=== PATIENT | female | born 1960 | race Caucasian/White ===

== ENCOUNTER 2021-07-25 08:16 | Observation (INO) | payer OTHER ==
[2021-07-25] MEDS ORDERED: SODIUM CHLORIDE 0.9% 1,000 ML IV STA ×2 (08:23)
--- NOTE | 2021-07-25 08:25 | ED ---
Dizziness HPI - General Stated Complaint: Hypertension Time Seen by Provider: 07/25/21 08:16 Source: patient, EMS, RN notes reviewed Mode of arrival: EMS Limitations: no limitations - History of Present Illness Initial Comments: 60-year-old female with a benign past medical history positive family history for CVA and hypertension who apparently had an episode yesterday where she was working on a computer the dizzy and felt like he was having difficulty with her vision where was closing up this morning she took her blood pressure was 190 systolic she will still feeling somewhat dizzy she called EMS was brought in for evaluation. He has a dizzy episode while in the EMS truck no chest pain shortness breath fevers chills nausea vomiting sweats no headache no palpitations no other complaints or symptoms reported. She does admit that she likely did not drink much fluid yesterday. She feels like she does have a dry mouth. MD Complaint: dizziness, other - Related Data Home Medications Medication Instructions Recorded Confirmed No Known Home Medications 07/25/21 07/25/21 Allergies Allergy/AdvReac Type Severity Reaction Status Date / Time No Known Allergies Allergy Verified 07/25/21 08:54 Review of Systems ROS Statement: Those systems with pertinent positive or pertinent negative responses have been documented in the HPI. ROS Other: All systems not noted in ROS Statement are negative. Past Medical History Past Medical History: No Reported History History of Any Multi-Drug Resistant Organisms: None Reported Past Surgical History: No Surgical Hx Reported Past Psychological History: No Psychological Hx Reported Smoking Status: Never smoker Past Alcohol Use History: Daily Past Drug Use History: None Reported General Exam - General Exam Comments Initial Comments: This is a well-developed well-nourished awake alert oriented 3 female Limitations: no limitations General appearance: alert, anxious Head exam: Present: atraumatic, normocephalic, normal inspection Eye exam: Present: normal appearance, PERRL, EOMI. Absent: scleral icterus, conjunctival injection, periorbital swelling ENT exam: Present: normal exam, mucous membranes moist Neck exam: Present: normal inspection, full ROM, other (No stridor or bruits). Absent: tenderness, meningismus, lymphadenopathy Respiratory exam: Present: normal lung sounds bilaterally. Absent: respiratory distress, wheezes, rales, rhonchi, stridor Cardiovascular Exam: Present: regular rate, normal rhythm, normal heart sounds. Absent: systolic murmur, diastolic murmur, rubs, gallop, clicks GI/Abdominal exam: Present: soft, normal bowel sounds. Absent: distended, tenderness, guarding, rebound, rigid, bruit, pulsatile mass Extremities exam: Present: normal inspection, full ROM, normal capillary refill. Absent: tenderness, pedal edema, joint swelling, calf tenderness Back exam: Present: normal inspection Neurological exam: Present: alert, oriented X3, CN II-XII intact Psychiatric exam: Present: normal affect, normal mood Skin exam: Present: warm, dry, intact, normal color. Absent: rash Course Vital Signs 07/25/21 07/25/21 07/25/21 08:18 09:07 10:45 Pulse Rate 82 78 Respiratory 18 18 Rate Blood Pressure 171/77 147/88 148/78 O2 Sat by Pulse 100 100 Oximetry EKG Findings - EKG Results: EKG: interpreted by NIKI ROSSL, sinus rhythm, normal axis, normal QRS, normal ST/T, no acute changes (Normal sinus rhythm a 71. Interval 164 QRS 84 QT since QTC 374/[address]-T wave changes) Medical Decision Making - Medical Decision Making I did reevaluate patient multiple occasions we did discuss the findings patient still has intermittent episodes of dizziness without provocation no change with position head turning eye movement exam of the ear canals reveals cerumen no definite acute pathology. She did have a recent plugged left ear she states but that's since resolved patient will be admitted for evaluation by neurology I did discuss the case with Dr. Adorno - Lab Data Result diagrams: 07/25/21 08:30 07/25/21 08:30 Lab Results 07/25/21 07/25/21 07/25/21 Range/Units 08:30 08:30 08:30 WBC 5.4 (3.8-10.6) k/uL RBC 4.57 (3.80-5.40) m/uL Hgb 14.2 (11.4-16.0) gm/dL Hct 43.0 (34.0-46.0) % MCV 93.9 (80.0-100.0) fL MCH 31.1 (25.0-35.0) pg MCHC 33.1 (31.0-37.0) g/dL RDW 12.7 (11.5-15.5) % Plt Count 271 (150-450) k/uL MPV 7.5 Neutrophils % 59 % Lymphocytes % 30 % Monocytes % 4 % Eosinophils % 3 % Basophils % 1 % Neutrophils # 3.2 (1.3-7.7) k/uL Lymphocytes # 1.6 (1.0-4.8) k/uL Monocytes # 0.2 (0-1.0) k/uL Eosinophils # 0.2 (0-0.7) k/uL Basophils # 0.0 (0-0.2) k/uL Sodium 144 (137-145) mmol/L Potassium 3.6 (3.5-5.1) mmol/L Chloride 107 (98-107) mmol/L Carbon Dioxide 26 (22-30) mmol/L Anion Gap 11 mmol/L BUN 19 H (7-17) mg/dL Creatinine 0.79 (0.52-1.04) mg/dL Est GFR (CKD-EPI)AfAm >90 (>60 ml/min/1.73 sqM) Est GFR (CKD-EPI)NonAf 81 (>60 ml/min/1.73 sqM) Glucose 119 H (74-99) mg/dL Calcium 9.6 (8.4-10.2) mg/dL Magnesium 2.0 (1.6-2.3) mg/dL Total Bilirubin 0.8 (0.2-1.3) mg/dL AST 19 (14-36) U/L ALT 17 (4-34) U/L Alkaline Phosphatase 74 (38-126) U/L Creatine Kinase 68 (30-135) U/L Troponin I <0.012 (0.000-0.034) ng/mL Total Protein 7.2 (6.3-8.2) g/dL Albumin 4.6 (3.5-5.0) g/dL TSH 5.430 H (0.465-4.680) mIU/L Free T4 1.02 (0.78-2.19) ng/dL Urine Color Urine Appearance (Clear) Urine pH (5.0-8.0) Ur Specific Sargent (1.001-1.035) Urine Protein (Negative) Urine Glucose (UA) (Negative) Urine Ketones (Negative) Urine Blood (Negative) Urine Nitrite (Negative) Urine Bilirubin (Negative) Urine Urobilinogen (<2.0) mg/dL Ur Leukocyte Esterase (Negative) Urine RBC (0-5) /hpf Urine WBC (0-5) /hpf Ur Squamous Epith Cells (0-4) /hpf Coronavirus (PCR) (Not Detectd) 07/25/21 07/25/21 Range/Units 09:17 09:42 WBC (3.8-10.6) k/uL RBC (3.80-5.40) m/uL Hgb (11.4-16.0) gm/dL Hct (34.0-46.0) % MCV (80.0-100.0) fL MCH (25.0-35.0) pg MCHC (31.0-37.0) g/dL RDW (11.5-15.5) % Plt Count (150-450) k/uL MPV Neutrophils % % Lymphocytes % % Monocytes % % Eosinophils % % Basophils % % Neutrophils # (1.3-7.7) k/uL Lymphocytes # (1.0-4.8) k/uL Monocytes # (0-1.0) k/uL Eosinophils # (0-0.7) k/uL Basophils # (0-0.2) k/uL Sodium (137-145) mmol/L Potassium (3.5-5.1) mmol/L Chloride (98-107) mmol/L Carbon Dioxide (22-30) mmol/L Anion Gap mmol/L BUN (7-17) mg/dL Creatinine (0.52-1.04) mg/dL Est GFR (CKD-EPI)AfAm (>60 ml/min/1.73 sqM) Est GFR (CKD-EPI)NonAf (>60 ml/min/1.73 sqM) Glucose (74-99) mg/dL Calcium (8.4-10.2) mg/dL Magnesium (1.6-2.3) mg/dL Total Bilirubin (0.2-1.3) mg/dL AST (14-36) U/L ALT (4-34) U/L Alkaline Phosphatase (38-126) U/L Creatine Kinase (30-135) U/L Troponin I (0.000-0.034) ng/mL Total Protein (6.3-8.2) g/dL Albumin (3.5-5.0) g/dL TSH (0.465-4.680) mIU/L Free T4 (0.78-2.19) ng/dL Urine Color Light Yellow Urine Appearance Clear (Clear) Urine pH 6.0 (5.0-8.0) Ur Specific Sargent 1.007 (1.001-1.035) Urine Protein Negative (Negative) Urine Glucose (UA) Negative (Negative) Urine Ketones Negative (Negative) Urine Blood Negative (Negative) Urine Nitrite Negative (Negative) Urine Bilirubin Negative (Negative) Urine Urobilinogen <2.0 (<2.0) mg/dL Ur Leukocyte Esterase Moderate H (Negative) Urine RBC <1 (0-5) /hpf Urine WBC 4 (0-5) /hpf Ur Squamous Epith Cells <1 (0-4) /hpf Coronavirus (PCR) Not Detected (Not Detectd) - Radiology Data Radiology results: report reviewed (Imaging showed no acute findings incidental findings of prominent tonsils please see the complete report), image reviewed Disposition Clinical Impression: Dizziness, nonspecific Disposition: ADMITTED IP TO THIS [facility] Condition: Stable Referrals: Nonstaff,Physician [Primary Care Provider] - 1-2 days
[2021-07-25 08:37] LABS: Basophils % (A) 1 %; Eosinophils # (A) 0.2 k/uL (0-0.7); Eosinophils % (A) 3 %; HGB 14.2 gm/dL (11.4-16.0); Lymphocytes # (A) 1.6 k/uL (1.0-4.8); Lymphocytes % (A) 30 %; MCH 31.1 pg (25.0-35.0); MCHC 33.1 g/dL (31.0-37.0); MCV 93.9 fL (80.0-100.0); Mean Platelet Volume 7.5; Monocytes # (A) 0.2 k/uL (0-1.0); Monocytes % (A) 4 %; Neutrophils # (A) 3.2 k/uL (1.3-7.7); Neutrophils % (A) 59 %; Platelet Count 271 k/uL (150-450); RBC 4.57 m/uL (3.80-5.40); RDW 12.7 % (11.5-15.5); WBC 5.4 k/uL (3.8-10.6)
[2021-07-25 08:58] LABS: ALT 17 U/L (4-34); AST 19 U/L (14-36); African American GFR (CKD) >90 (>60 ml/min/1.73 sqM); Albumin 4.6 g/dL (3.5-5.0); Alkaline Phosphatase 74 U/L (38-126); Anion Gap 11 mmol/L; Blood Urea Nitrogen 19 mg/dL (7-17); Calcium 9.6 mg/dL (8.4-10.2); Carbon Dioxide 26 mmol/L (22-30); Chloride 107 mmol/L (98-107); Creatine Kinase 68 U/L (30-135); Glucose 119 mg/dL (74-99); Non-African American GFR(CKD) 81 (>60 ml/min/1.73 sqM); Potassium 3.6 mmol/L (3.5-5.1); Sodium 144 mmol/L (137-145); Total Bilirubin 0.8 mg/dL (0.2-1.3); Total Protein 7.2 g/dL (6.3-8.2)
--- NOTE | 2021-07-25 09:15 | XR ---
EXAMINATION TYPE: XR chest 2V DATE OF EXAM: 07/25/2021 COMPARISON: NONE HISTORY: Hypertension TECHNIQUE: Frontal and lateral views of the chest are obtained. FINDINGS: There is no focal air space opacity, pleural effusion, or pneumothorax seen. The cardiac silhouette size is within normal limits. The osseous structures are remarkable for mild superior an terior wedge deformity the upper lumbar spine, associated degenerative disc changes. Right hemidiaphr agm is mildly elevated. There are overlying leads. IMPRESSION: No acute cardiopulmonary process. Additional findings above.
[2021-07-25] MEDS ORDERED: ONDANSETRON 4 MG/2 ML VIAL IVP STA (09:29)
[2021-07-25] MEDS ORDERED: MECLIZINE 12.5 MG TAB PO STA (09:38)
[2021-07-25 09:40] LABS: Appearance,Urine Clear (Clear); Bilirubin,Urine Negative (Negative); Blood,Urine Negative (Negative); Color,Urine Light Yellow; Glucose,Urine (UA) Negative (Negative); Ketones,Urine Negative (Negative); Leukocyte Esterase,Urine Moderate (Negative); Nitrite,Urine Negative (Negative); Protein,Urine Negative (Negative); RBC,Urine <1 /hpf (0-5); Specific Gravity,Urine 1.007 (1.001-1.035); Squamous Epithelial Cell,Urine <1 /hpf (0-4); Urobilinogen,Urine <2.0 mg/dL (<2.0); WBC,Urine 4 /hpf (0-5)
[2021-07-25 09:56] LABS: T4, Free (Free Thyroxine) 1.02 ng/dL (0.78-2.19)
--- NOTE | 2021-07-25 10:24 | CT ---
EXAMINATION TYPE: CT brain wo con DATE OF EXAM: 07/25/2021 COMPARISON: None HISTORY: 60-year-old female Headache, Hypertension 1098.4, infection suspected. TECHNIQUE: Examination was done in axial plane without intravenous contrast. Coronal and sagittal r econstructions performed. CT DLP: 1098.7 mGycm Automated exposure control for dose reduction was used. FINDINGS: There is no evidence of acute intracranial hemorrhage, acute ischemic changes, mass, mass-effect, or extra-axial fluid collection. There is no effacement of cerebral sulci or basal subarachnoid cister ns. There is no hydrocephalus. There is no midline shift. Velasco-white matter distinction is preserv ed. Incidental cerebellar tonsillar ectopia measuring up to 5 mm on the right and 3 mm on the left. Some elongated appearance to the tonsils on the right. However, there is no significant crowding at the fo ramen magnum. Paranasal sinuses are clear. Mastoid air cells well pneumatized. Orbits and globes are intact. IMPRESSION: 1. No acute intracranial abnormality seen. 2. Indeterminate between benign cerebellar tonsillar ectopia and Chiari I malformation. Further clini tamika correlation recommended.
[2021-07-25] MEDS ORDERED: NALOXONE 0.4 MG/ML 1 ML VIAL IV PRN (13:03)
[2021-07-25] MEDS ORDERED: ACETAMINOPHEN TAB 325 MG TAB PO PRN (13:03)
--- NOTE | 2021-07-25 14:45 | P.CNNES ---
History of Present Illness Consult date: 07/25/21 Requesting physician: Ernie Francis Reason for Consult: intractable diziness History of Present Illness: This is a 60-year-old right-handed woman with no past medical history that presented emergency department via EMS on 07/25/2021 for dizziness. She stated that on 07/24/2021 around 7 PM she had a 15 minute episode of the visual disturbance in which she describes that she was seeing spots on both eyes and there is no color to the spots and there is no pattern to them but a just seemed "goofy" on both of her eyes then resolved. Then today when she woke up around 7 AM she had an episode where she was feeling dizzy and her vision was tunneled. She could not describe the dizziness but she denied any spinning sensation, nausea, vomiting, ringing in the ears or hearing loss. She denies any associated focal weakness, numbness, difficulty swallowing, difficulty getting her words out or having headaches. She said that she checked her blood pressure today and it was 208/94. Currently she said feeling back to baseline. She stated that this past Thursday she felt her left ear was off but she denies any drainage and erythema and she said that resolved within a day. He denies any head trauma, any fever recently, as stated earlier any ringing in the ears. She denies any tobacco use or illicit drug use. She socially drinks alcohol. She denies any history of stroke, TIA or any other medical issues. She denies any history of hypertension. She denies being on any medications at home. Per father had history of stroke in his 40s and she said that her brother had a history of brain bleed in the pituitary. Some of the workup in the hospital consisted of: Initial vital signs his blood pressure of 171/77, heart rate of 82, respiratory of 18, pulse ox 100% room air. CBC with differential is unremarkable Chemistry panel is unremarkable Calcium is 9.6, magnesium 2.0, AST of 19, ALT of 70 TSH is 5.430 which is a slightly high but the free T4 was 1.02 which is normal. Urinalysis is clear, nitrates negative, leukocyte Estrace moderate, urine white blood cell is 4. Freire virus PCR was not detected that. CT of the head is reported as no acute intracranial abnormality seen. In determining between benign cerebellar tonsilar ectopia and chiari malformation. I personally reviewed the CT of the head there is no acute or subacute ischemia there is no intraparenchymal hemorrhage. Regarding the chiari malformation vs ectopia it is hard to assess. Review of Systems Review of system: The 12 point system was reviewed and apparent positive and negative per HPI. Past Medical History Past Medical History: No Reported History History of Any Multi-Drug Resistant Organisms: None Reported Past Surgical History: No Surgical Hx Reported Past Psychological History: No Psychological Hx Reported Smoking Status: Never smoker Past Alcohol Use History: Daily Past Drug Use History: None Reported - Past Family History Mother Family Medical History: COPD, Diabetes Mellitus, Hypertension Father Family Medical History: CVA/TIA, Dementia Brother(s) Additional Family Medical History / Comment(s): brain bleed. Medications and Allergies Home Medications Medication Instructions Recorded Confirmed Type No Known Home Medications 07/25/21 07/25/21 History Allergies Allergy/AdvReac Type Severity Reaction Status Date / Time No Known Allergies Allergy Verified 07/25/21 08:54 Physical Examination - Vital Signs Vital Signs: Vital Signs Pulse Resp BP Pulse Ox 07/25/21 10:45 78 18 148/78 100 07/25/21 09:07 147/88 07/25/21 08:18 82 18 171/77 100 Intake and Output 07/24/21 07/25/21 07/25/21 22:59 06:59 14:59 Other: Weight 70.307 kg GENERAL: The patient is lying in bed and is not in acute distress. CHEST: The heart rate is regular rate rhythm. No murmurs to auscultation. LUNG: Clear to auscultation bilaterally no wheezing noted throughout. Not labored breathing. ABDOMEN/GI: Bowel sounds present in all 4 quadrants. No tenderness to palpation throughout. NEUROLOGICAL: Higher mental function: The patient is awake, alert, oriented to self, place and time. Patient is following commands. No aphasia and no neglect. Cranial nerves: The pupils are round, equal and reactive to light and accommodation. Visual r[place] are full to confrontation throughout. Extraocular movement is intact no nystagmus is noted. Facial sensation is normal to touch throughout. The facial strength is normal throughout. Hearing is normal bilaterally to hand rub. Tongue is midline and moved [id number] without any difficulty. No dysarthria is noted. Shoulder shrug is normal bilaterally. Motor: Gait is normal with normal arm swings. The strength is 5 over 5 throughout. Normal tone and bulk. Cerebellum: Normal finger to nose heel to teixeira bilaterally. Sensation: Sensation is normal to touch throughout. Reflexes (right/left): 2+ throughout. Plantars are downgoing bilaterally. Results - Laboratory Findings CBC and BMP: 07/25/21 08:30 07/25/21 08:30 Abnormal Lab Findings: Abnormal Labs 07/25/21 07/25/21 08:30 09:17 BUN 19 H Glucose 119 H TSH 5.430 H Ur Leukocyte Esterase Moderate H Assessment and Plan Assessment: Transient episode of acute Dizziness, visual disturbance: Unknown exact etiology. Unsure if only related to uncontrolled new onset hypertension. Rule out stroke or intracranial lesion. New onset uncontrolled hypertension Family history of stroke (father in his 40's) Plan: I ordered MRI of the brain to rule out stroke vs other intracranial lesion. I also ordered the MRI to help determine whether the patient does have any chiari malformation vs cerebellar ectopia. In the ED the patient was given meclizine 25 mg once. Every 4 hours neuro checks We'll defer the rest of the medical management to primary team. The plan is discussed with the patient. Thank you for the consultation. Enrrique Mortensen M.D. Neuro-Hospitalist Time with Patient: Greater than 30
--- NOTE | 2021-07-25 14:59 | P.HPIM ---
History of Present Illness H&P Date: 07/25/21 Chief Complaint: dizziness 60-year-old female with no significant past medical history but has positive family history for CVA in her father in his 40s who presented with dizziness, described as lightheadedness, ''tunnel vision'', seeing ''spots'' as well as difficulty with her memory earlier today. Last night she took her blood pressure and it was 190 systolic. No focal weakness or numbness, no slurred speech, no chest pain shortness breath fevers chills nausea vomiting sweats no headache no palpitations no other complaints or symptoms reported. She does admit that she likely did not drink much fluid yesterday and she feels that her mouth is dry.. She takes 2 alcohol drinks 4 times a week. Her blood pressure in the emergency department was 170/70. Laboratory evaluation was negative. Patient had computed tomography scan which was unremarkable. She was admitted for further evaluation by neurology. Review of Systems Complete review of system performed, pertinent positives per HPI, otherwise negative Past Medical History Past Medical History: No Reported History History of Any Multi-Drug Resistant Organisms: None Reported Past Surgical History: No Surgical Hx Reported Past Psychological History: No Psychological Hx Reported Smoking Status: Never smoker Past Alcohol Use History: Daily Past Drug Use History: None Reported - Past Family History Mother Family Medical History: COPD, Diabetes Mellitus, Hypertension Father Family Medical History: CVA/TIA, Dementia Brother(s) Additional Family Medical History / Comment(s): brain bleed. Medications and Allergies Home Medications Medication Instructions Recorded Confirmed Type No Known Home Medications 07/25/21 07/25/21 History Allergies Allergy/AdvReac Type Severity Reaction Status Date / Time No Known Allergies Allergy Verified 07/25/21 08:54 Physical Exam Vitals: Vital Signs Pulse Resp BP Pulse Ox 07/25/21 10:45 78 18 148/78 100 07/25/21 09:07 147/88 07/25/21 08:18 82 18 171/77 100 Intake and Output 07/24/21 07/25/21 07/25/21 22:59 06:59 14:59 Other: Weight 70.307 kg Constitutional: No acute distress, conversant, pleasant Eyes:Anicteric sclerae, moist conjunctiva, no lid-lag, PERRLA, ENMT: Oropharynx clear, no erythema, exudates Neck: Supple, FROM, no masses, or JVD, No carotid bruits, No thyromegaly Lungs: Clear to auscultation, Clear to percussion, Normal respiratory effort, no accessory muscle use Cardiovascular: Heart regular in rate and rhythm, No murmurs, gallops, or rubs, No peripheral edema Abdominal: Soft, Nontender, no guarding, rebound or rigidity, Normoactive bowel sounds, No hepatomegaly, No splenomegaly, No palpable mass Skin: Normal temperature, tone, texture, turgor, no induration, No subcutaneous nodules, No rash, lesions, No ulcers Extremities: No digital cyanosis, No clubbing, Pedal pulses intact and symmetrical, Radial pulses intact and symmetrical, No calf tenderness Psychiatric: Alert and oriented to person, place and time, appropriate affect, intact judgement Neuro: Muscles Strength 5/5 in all 4 extremities, Sensation to light touch grossly present throughout, Cranial nerves II-XII grossly intact, no focal sensory deficits Results CBC & Chem 7: 07/25/21 08:30 07/25/21 08:30 Labs: Abnormal Lab Results - Last 24 Hours (Table) 07/25/21 07/25/21 Range/Units 08:30 09:17 BUN 19 H (7-17) mg/dL Glucose 119 H (74-99) mg/dL TSH 5.430 H (0.465-4.680) mIU/L Ur Leukocyte Esterase Moderate H (Negative) Assessment and Plan Plan: Dizziness/visual disturbance Admit for neuro checks and neurology evaluation Neurochecks q 4hrs Brain MRI to rule out CVA, could be secondary to dehydration versus new-onset hypertension New-onset hypertension We'll start BP meds in a.m. EtOH abuse Counseled to quit Monitor for withdrawal Admit to observation
[2021-07-25 21:32] VITALS: TEMP 98.1
[2021-07-25] MEDS: SODIUM CHLORIDE 0.9% 1,000 ML IV SCH (21:33)
[2021-07-26 03:03] VITALS: RESP 18
[2021-07-26] MEDS: SODIUM CHLORIDE 0.9% 1,000 ML IV SCH (03:49)
[2021-07-26 08:06] VITALS: BP 150/69; PULSE 71
--- NOTE | 2021-07-26 10:52 | MR ---
EXAMINATION TYPE: MR brain wo/w con DATE OF EXAM: 07/26/2021 COMPARISON: CT 07/25/2021 HISTORY: Dizziness, R/O chiari malformation vs ectopia TECHNIQUE: Multiplanar, multisequence images of the brain and brainstem is performed without and with IV contras t, utilizing 7 mL intravenous Gadavist . FINDINGS: Diffusion weighted images demonstrate no evidence of a recent infarct or other diffusion ab normality. There is no extra-axial fluid collection. There are scattered periventricular, subcortic al hyperintensities on inversion recovery T2-weighted sequences, approximately 15-20 lesions are pres ent, largest in the right frontal lobe measures 7 mm, axial image 19 of series 501. The ventricular s ystem and cisternal spaces are normal in size and appearance. The brain volume is age appropriate. Midline structures demonstrate minimal inferior cerebellar tonsillar ectopia, sagittal image 16 serie s 201 shows close proximity of the inferior aspect of the cerebellar tonsil to the level of the latisha en magnum as does post contrast sagittal image 87 series 601.. The craniocervical junction appears w ithin normal limits. Post contrast images demonstrate no abnormal enhancement. The dural venous sinu ses appear patent. The visualized sinuses are clear and the globes are intact. IMPRESSION: Borderline inferior cerebellar tonsillar ectopia. Nonspecific white matter demyelination.
--- NOTE | 2021-07-26 11:22 | P.DS ---
Providers Date of admission: 07/25/21 13:06 Expected date of discharge: 07/26/21 Attending physician: Gay Adorno MD Consults: 07/25/21 13:05 Consult Physician Routine Consulting Provider: Enrrique Mortensen Consult Reason/Comments: Intractable dizziness Do you want consulting provider notified?: Yes Primary care physician: Physician Nonstaff Hospital Course: 60-year-old female with no significant past medical history but has positive family history for CVA in her father in his 40s who presented with dizziness, described as lightheadedness, ''tunnel vision'', seeing ''spots'' as well as difficulty with her memory earlier today. Last night she took her blood pressure and it was 190 systolic. No focal weakness or numbness, no slurred speech, no chest pain shortness breath fevers chills nausea vomiting sweats no headache no palpitations no other complaints or symptoms reported. She does admit that she likely did not drink much fluid yesterday and she feels that her mouth is dry.. She takes 2 alcohol drinks 4 times a week. Her blood pressure in the emergency department was 170/70. Patient has no history of hypertension in the past. Laboratory evaluation was negative. Patient had computed tomography scan which was unremarkable. EKG and CXR ok. She was admitted for further evaluation by neurology. Upon admission patient was monitored with neuro checks, telemetry. She was hydrated with IV fluids. She was seen by neurology who recommended brain MRI which showed no acute stroke. Today her symptoms have gotten better, she was able to get up without severe dizziness. Her vision is improved. Her blood pressure improved to 140-160 systolic. She was cleared by neurology for discharge. Patient told me today that her mother had severe anaphylaxis to losartan, due to that she will not be given any medication of that class or the BRIAN inhibitor class. She will be initiated on HCTZ. She was instructed to follow-up with her primary care physician to check on her blood pressure on an outpatient basis. Patient Condition at Discharge: Stable Plan - Discharge Summary Discharge Rx Participant: No New Discharge Prescriptions: New Hydrochlorothiazide [hydroCHLOROthiazide] 25 mg PO DAILY 30 Days #30 capsule Discharge Medication List Hydrochlorothiazide [hydroCHLOROthiazide] 25 mg PO DAILY 30 Days #30 capsule 07/26/21 [Rx] Follow up Appointment(s)/Referral(s): Nonstaff,Physician [Primary Care Provider] - 1-2 days
--- NOTE | 2021-07-26 11:37 | P.PN ---
Subjective Progress Note Date: 07/26/21 The patient is seen at bedside and she feels she is back at baseline and no further neurological issues. Objective - Vital Signs Vital signs: Vital Signs Temp 98.1 F 07/26/21 07:00 Pulse 71 07/26/21 07:00 Resp 18 07/26/21 07:00 BP 150/69 07/26/21 07:00 Pulse Ox 100 07/26/21 07:00 Intake & Output 07/25/21 07/26/21 07/26/21 18:59 06:59 18:59 Intake Total 118 Balance 118 Weight 70.307 kg Intake: Oral 118 Other: # Voids 1 - Exam GENERAL: The patient is lying in bed and is not in acute distress. NEUROLOGICAL: Higher mental function: The patient is awake, alert, oriented to self, place and time. Patient is following commands. No aphasia and no neglect. Cranial nerves: The pupils are round, equal and reactive to light and accommodation. Visual [place] are full to confrontation throughout. Extraocular movement is intact no nystagmus is noted. Facial sensation is normal to touch throughout. The facial strength is normal throughout. Hearing is normal bilaterally to hand rub. Tongue is midline and moved [id number] without any difficulty. No dysarthria is noted. Shoulder shrug is normal bilaterally. Motor: Gait is normal with normal arm swings. The strength is 5 over 5 throughout. Normal tone and bulk. Cerebellum: Normal finger to nose heel to teixeira bilaterally. Sensation: Sensation is normal to touch throughout. Reflexes (right/left): 2+ throughout. Plantars are downgoing bilaterally. WORK-UP: Calcium is 9.6, magnesium 2.0, AST of 19, ALT of 70 TSH is 5.430 which is a slightly high but the free T4 was 1.02 which is normal. Urinalysis is clear, nitrates negative, leukocyte Estrace moderate, urine white blood cell is 4. Freire virus PCR was not detected that. CT of the head is reported as no acute intracranial abnormality seen. In determining between benign cerebellar tonsilar ectopia and chiari malformation. I personally reviewed the CT of the head there is no acute or subacute ischemia there is no intraparenchymal hemorrhage. Regarding the chiari malformation vs ectopia it is hard to assess. - Labs CBC & Chem 7: 07/25/21 08:30 07/25/21 08:30 Assessment and Plan Assessment: Transient episode of acute Dizziness, visual disturbance: Unknown exact etiology. Unsure if only related to uncontrolled new onset hypertension. Rule out stroke or intracranial lesion. New onset uncontrolled hypertension Family history of stroke (father in his 40's) Plan: MRI of the brain is pending to rule out stroke vs other intracranial lesion. I also ordered the MRI to help determine whether the patient does have any chiari malformation vs cerebellar ectopia. Every 4 hours neuro checks We'll defer the rest of the medical management to primary team. The plan is discussed with the patient. UPDATE: MR the brain w/ and w/o is reported as borderline inferior cerebellar tonsil ectopia. Nonspecific white matter demyelination. Recommend the patient to follow-up with a neurologist and neurosurgeon (as baseline) as an outpatient regarding the cerebellar tonsillar ectopia. I personally showed the MRI Brain images to the patient and relayed plan. There is no further work-up. Patient is clear from neurologist perspective. Enrrique Mortensen M.D. Neuro-Hospitalist Time with Patient: Less than 30
== END 2021-07-26 14:56 ==
LOC: EC 08:16 → 6NMEDSUR 13:06
PROVIDERS: ADMIT Internal Medicine; ATTEND Internal Medicine
DX: R42 Dizziness and giddiness (principal); H53.489 Generalized contraction of visual field, unspecified eye; H53.8 Other visual disturbances; I10 Essential (primary) hypertension; R68.2 Dry mouth, unspecified; F10.10 Alcohol abuse, uncomplicated; Z71.41 Alcohol abuse counseling and surveillance of alcoholic; Z20.822 Contact with and (suspected) exposure to COVID-19; Z83.3 Family history of diabetes mellitus; Z82.3 Family history of stroke; Z82.49 Family history of ischemic heart disease and other diseases of the circulatory system; Z82.5 Family history of asthma and other chronic lower respiratory diseases; Z82.0 Family history of epilepsy and other diseases of the nervous system
CPT/HCPCS: 96360; 96361; 99285; 36415; 93005; 84439; 80053; 84443; 82550; 83735; 84484; 85025; 81001; 87635; 71046; 70450; 70553; G0378 ×2; A9585

== ENCOUNTER 2021-08-10 19:01 | Observation (INO) | payer OTHER ==
--- NOTE | 2021-08-10 19:44 | ED ---
General Adult HPI - General Chief complaint: Dizziness Stated complaint: SOB/Dizziness/Hot flashes Time Seen by Provider: 08/10/21 19:42 Source: patient Mode of arrival: wheelchair Limitations: no limitations - History of Present Illness Initial comments: Patient presents to the ED with her daughter for evaluation. Patient states that she has had intermittent bouts of lightheadedness accompanied by rapid heart palpitations and dyspnea since about noon today. Patient also admits to having mild chest tightness intermittently today as well. Patient states that her symptoms have completely resolved currently. Patient states that she had similar symptoms earlier this month at which time she was admitted to the hospital. Patient states that she was started on blood pressure medications at that time, which she states that she has been taking as prescribed. Patient states that she feels that anxiety may be contributing to some of her symptoms t petra. Patient denies trauma or injury, fever or chills, headache, focal numbness/weakness/neuro deficit, visual changes, speech difficulty, neck/arm/jaw/back pain, pleuritic pain, cough or cold symptoms, syncope, abdominal pain, nausea/vomiting/diarrhea, bloody or melanotic stool, dysuria or urinary symptoms, decreased urine output, leg or calf swelling or pain, or any other symptoms or complaints. - Related Data Previous Rx's Medication Instructions Recorded Hydrochlorothiazide 25 mg PO DAILY 30 Days #30 capsule 07/26/21 [hydroCHLOROthiazide] Allergies Allergy/AdvReac Type Severity Reaction Status Date / Time No Known Allergies Allergy Verified 08/10/21 19:09 Review of Systems ROS Statement: Those systems with pertinent positive or pertinent negative responses have been documented in the HPI. ROS Other: All systems not noted in ROS Statement are negative. Past Medical History Past Medical History: Hypertension History of Any Multi-Drug Resistant Organisms: None Reported Past Surgical History: No Surgical Hx Reported Additional Past Surgical History / Comment(s): [place] teeth extractions, PRK bilateral eyes for vision correction. Past Anesthesia/Blood Transfusion Reactions: No Reported Reaction Past Psychological History: No Psychological Hx Reported Smoking Status: Never smoker Past Alcohol Use History: Daily Past Drug Use History: None Reported - Past Family History Mother Family Medical History: COPD, Diabetes Mellitus, Hypertension Father Family Medical History: CVA/TIA, Dementia Brother(s) Additional Family Medical History / Comment(s): brain bleed. General Exam Limitations: no limitations General appearance: alert, in no apparent distress Head exam: Present: atraumatic, normocephalic Eye exam: Present: normal appearance, PERRL, EOMI ENT exam: Present: mucous membranes moist Neck exam: Present: other (Trachea is in midline) Respiratory exam: Present: normal lung sounds bilaterally. Absent: respiratory distress, wheezes, rales, rhonchi, stridor Cardiovascular Exam: Present: regular rate, normal rhythm, normal heart sounds, other (Normal radial pulses bilaterally) GI/Abdominal exam: Present: soft. Absent: distended, tenderness, guarding Extremities exam: Present: full ROM, other (Negative Homans sign bilaterally). Absent: tenderness, pedal edema, calf tenderness Neurological exam: Present: alert, oriented X3, CN II-XII intact. Absent: motor sensory deficit Psychiatric exam: Present: normal affect, normal mood Skin exam: Present: warm, dry, intact, normal color Course Vital Signs 08/10/21 08/10/21 19:03 20:49 Temperature 97.8 F Pulse Rate 85 76 Respiratory 19 18 Rate Blood Pressure 154/66 146/50 O2 Sat by Pulse 100 97 Oximetry - Reevaluation(s) Reevaluation #1: 08/10/21 21:40 Patient denies development of any new symptoms while in the ED. Patient remains alert and breathing comfortably with a normal room air oxygen saturation. Patient remains in normal sinus rhythm on the monitor technician. Patient and daughter are aware the patient's test results, and they both agree with hospital admission at this time. 08/10/21 21:58 Case, H&P, test results and ED management were discussed with Dr. Mary. He accepts hospital admission. He agrees with cardiology consultation. He has no further recommendations at this time. EKG Findings - EKG Comments: EKG Findings:: Normal sinus rhythm, ventricular rate of 77 bpm, no ectopy, normal DE and QRS intervals, normal QT interval, normal axis, no ST or T-wave abnormality Medical Decision Making - Medical Decision Making Patient's EKG, chest x-ray and labs are all fairly unremarkable other than a mildly low potassium level. Patient's troponin and d-dimer are within normal limits. Patient has been treated with oral potassium repletion, as well as a dose of aspirin in the ED. Given the patient's reported palpitations, lightheadedness, dyspnea and chest tightness, I feel that hospital admission for serial troponins, cardiac monitoring, cardiology consultation and further evaluation is warranted. Patient agrees with this plan. Dr. Mary has accepted hospital admission. - Lab Data Result diagrams: 08/10/21 20:13 08/10/21 20:13 Lab Results 08/10/21 08/10/21 08/10/21 Range/Units 20:13 20:13 20:13 WBC 8.5 (3.8-10.6) k/uL RBC 4.34 (3.80-5.40) m/uL Hgb 13.4 (11.4-16.0) gm/dL Hct 39.4 (34.0-46.0) % MCV 90.9 (80.0-100.0) fL MCH 31.0 (25.0-35.0) pg MCHC 34.1 (31.0-37.0) g/dL RDW 11.7 (11.5-15.5) % Plt Count 252 (150-450) k/uL MPV 8.0 Neutrophils % 79 % Lymphocytes % 13 % Monocytes % 5 % Eosinophils % 1 % Basophils % 1 % Neutrophils # 6.7 (1.3-7.7) k/uL Lymphocytes # 1.1 (1.0-4.8) k/uL Monocytes # 0.4 (0-1.0) k/uL Eosinophils # 0.1 (0-0.7) k/uL Basophils # 0.1 (0-0.2) k/uL PT 10.5 (9.0-12.0) sec INR 1.0 (<1.2) APTT 23.7 (22.0-30.0) sec D-Dimer <0.17 (<0.60) mg/L FEU Sodium (137-145) mmol/L Potassium (3.5-5.1) mmol/L Chloride (98-107) mmol/L Carbon Dioxide (22-30) mmol/L Anion Gap mmol/L BUN (7-17) mg/dL Creatinine (0.52-1.04) mg/dL Est GFR (CKD-EPI)AfAm (>60 ml/min/1.73 sqM) Est GFR (CKD-EPI)NonAf (>60 ml/min/1.73 sqM) Glucose (74-99) mg/dL Plasma Lactic Acid [place]ink[place] (0.7-2.0) mmol/L Calcium (8.4-10.2) mg/dL Magnesium (1.6-2.3) mg/dL Total Bilirubin (0.2-1.3) mg/dL AST (14-36) U/L ALT (4-34) U/L Alkaline Phosphatase (38-126) U/L Troponin I (0.000-0.034) ng/mL NT-Pro-B Natriuret Pep pg/mL Total Protein (6.3-8.2) g/dL Albumin (3.5-5.0) g/dL TSH (0.465-4.680) mIU/L Urine Color Colorless Urine Appearance Clear (Clear) Urine pH 6.0 (5.0-8.0) Ur Specific [place] 1.004 (1.001-1.035) Urine Protein Negative (Negative) Urine Glucose (UA) Negative (Negative) Urine Ketones Negative (Negative) Urine Blood Negative (Negative) Urine Nitrite Negative (Negative) Urine Bilirubin Negative (Negative) Urine Urobilinogen <2.0 (<2.0) mg/dL Ur Leukocyte Esterase Negative (Negative) Coronavirus (PCR) (Not Detectd) 08/10/21 08/10/21 08/10/21 Range/Units 20:13 20:13 20:13 WBC (3.8-10.6) k/uL RBC (3.80-5.40) m/uL Hgb (11.4-16.0) gm/dL Hct (34.0-46.0) % MCV (80.0-100.0) fL MCH (25.0-35.0) pg MCHC (31.0-37.0) g/dL RDW (11.5-15.5) % Plt Count (150-450) k/uL MPV Neutrophils % % Lymphocytes % % Monocytes % % Eosinophils % % Basophils % % Neutrophils # (1.3-7.7) k/uL Lymphocytes # (1.0-4.8) k/uL Monocytes # (0-1.0) k/uL Eosinophils # (0-0.7) k/uL Basophils # (0-0.2) k/uL PT (9.0-12.0) sec INR (<1.2) APTT (22.0-30.0) sec D-Dimer (<0.60) mg/L FEU Sodium 139 (137-145) mmol/L Potassium 3.2 L (3.5-5.1) mmol/L Chloride 100 (98-107) mmol/L Carbon Dioxide 29 (22-30) mmol/L Anion Gap 10 mmol/L BUN 25 H (7-17) mg/dL Creatinine 0.80 (0.52-1.04) mg/dL Est GFR (CKD-EPI)AfAm >90 (>60 ml/min/1.73 sqM) Est GFR (CKD-EPI)NonAf 80 (>60 ml/min/1.73 sqM) Glucose 119 H (74-99) mg/dL Plasma Lactic Acid Yink[place] 0.7 (0.7-2.0) mmol/L Calcium 10.1 (8.4-10.2) mg/dL Magnesium 1.9 (1.6-2.3) mg/dL Total Bilirubin 0.7 (0.2-1.3) mg/dL AST 22 (14-36) U/L ALT 16 (4-34) U/L Alkaline Phosphatase 71 (38-126) U/L Troponin I <0.012 (0.000-0.034) ng/mL NT-Pro-B Natriuret Pep pg/mL Total Protein 7.0 (6.3-8.2) g/dL Albumin 4.8 (3.5-5.0) g/dL TSH 2.780 (0.465-4.680) mIU/L Urine Color Urine Appearance (Clear) Urine pH (5.0-8.0) Ur Specific [place] (1.001-1.035) Urine Protein (Negative) Urine Glucose (UA) (Negative) Urine Ketones (Negative) Urine Blood (Negative) Urine Nitrite (Negative) Urine Bilirubin (Negative) Urine Urobilinogen (<2.0) mg/dL Ur Leukocyte Esterase (Negative) Coronavirus (PCR) (Not Detectd) 08/10/21 08/10/21 Range/Units 20:13 20:13 WBC (3.8-10.6) k/uL RBC (3.80-5.40) m/uL Hgb (11.4-16.0) gm/dL Hct (34.0-46.0) % MCV (80.0-100.0) fL MCH (25.0-35.0) pg MCHC (31.0-37.0) g/dL RDW (11.5-15.5) % Plt Count (150-450) k/uL MPV Neutrophils % % Lymphocytes % % Monocytes % % Eosinophils % % Basophils % % Neutrophils # (1.3-7.7) k/uL Lymphocytes # (1.0-4.8) k/uL Monocytes # (0-1.0) k/uL Eosinophils # (0-0.7) k/uL Basophils # (0-0.2) k/uL PT (9.0-12.0) sec INR (<1.2) APTT (22.0-30.0) sec D-Dimer (<0.60) mg/L FEU Sodium (137-145) mmol/L Potassium (3.5-5.1) mmol/L Chloride (98-107) mmol/L Carbon Dioxide (22-30) mmol/L Anion Gap mmol/L BUN (7-17) mg/dL Creatinine (0.52-1.04) mg/dL Est GFR (CKD-EPI)AfAm (>60 ml/min/1.73 sqM) Est GFR (CKD-EPI)NonAf (>60 ml/min/1.73 sqM) Glucose (74-99) mg/dL Plasma Lactic Acid [place]ink[place] (0.7-2.0) mmol/L Calcium (8.4-10.2) mg/dL Magnesium (1.6-2.3) mg/dL Total Bilirubin (0.2-1.3) mg/dL AST (14-36) U/L ALT (4-34) U/L Alkaline Phosphatase (38-126) U/L Troponin I (0.000-0.034) ng/mL NT-Pro-B Natriuret Pep 67 pg/mL Total Protein (6.3-8.2) g/dL Albumin (3.5-5.0) g/dL TSH (0.465-4.680) mIU/L Urine Color Urine Appearance (Clear) Urine pH (5.0-8.0) Ur Specific [place] (1.001-1.035) Urine Protein (Negative) Urine Glucose (UA) (Negative) Urine Ketones (Negative) Urine Blood (Negative) Urine Nitrite (Negative) Urine Bilirubin (Negative) Urine Urobilinogen (<2.0) mg/dL Ur Leukocyte Esterase (Negative) Coronavirus (PCR) Not Detected (Not Detectd) - Radiology Data Chest x-ray: Normal chest. No change. Disposition Clinical Impression: Palpitations, Lightheadedness, Hypokalemia, Chest pain Disposition: ADMITTED IP TO THIS HOSP Condition: Stable Is patient prescribed a controlled substance at d/c from ED?: No Referrals: Tess Christie DO [Primary Care Provider] - 1-2 days Time of Disposition: 21:58
[2021-08-10] MEDS ORDERED: SODIUM CHLORIDE 0.9% 500 ML 500 ML IV STA (19:53)
[2021-08-10 20:45] LABS: Basophils # (A) 0.1 k/uL (0-0.2); Basophils % (A) 1 %; Eosinophils # (A) 0.1 k/uL (0-0.7); Eosinophils % (A) 1 %; HCT 39.4 % (34.0-46.0); HGB 13.4 gm/dL (11.4-16.0); Lymphocytes # (A) 1.1 k/uL (1.0-4.8); Lymphocytes % (A) 13 %; MCHC 34.1 g/dL (31.0-37.0); MCV 90.9 fL (80.0-100.0); Monocytes # (A) 0.4 k/uL (0-1.0); Monocytes % (A) 5 %; Neutrophils # (A) 6.7 k/uL (1.3-7.7); Neutrophils % (A) 79 %; Platelet Count 252 k/uL (150-450); RBC 4.34 m/uL (3.80-5.40); RDW 11.7 % (11.5-15.5); WBC 8.5 k/uL (3.8-10.6)
[2021-08-10 20:58] LABS: ALT 16 U/L (4-34); AST 22 U/L (14-36); African American GFR (CKD) >90 (>60 ml/min/1.73 sqM); Albumin 4.8 g/dL (3.5-5.0); Alkaline Phosphatase 71 U/L (38-126); Anion Gap 10 mmol/L; Blood Urea Nitrogen 25 mg/dL (7-17); Calcium 10.1 mg/dL (8.4-10.2); Carbon Dioxide 29 mmol/L (22-30); Chloride 100 mmol/L (98-107); Glucose 119 mg/dL (74-99); Magnesium 1.9 mg/dL (1.6-2.3); Non-African American GFR(CKD) 80 (>60 ml/min/1.73 sqM); Potassium 3.2 mmol/L (3.5-5.1); Sodium 139 mmol/L (137-145); Total Bilirubin 0.7 mg/dL (0.2-1.3)
[2021-08-10 21:03] LABS: Partial Thromboplastin Time 23.7 sec (22.0-30.0); Prothrombin Time 10.5 sec (9.0-12.0)
[2021-08-10] MEDS ORDERED: POTASSIUM CHLORIDE ER 20 MEQ TAB.ER PO STA (21:15)
--- NOTE | 2021-08-10 21:16 | XR ---
EXAMINATION TYPE: XR chest 2V DATE OF EXAM: 08/10/2021 COMPARISON: 07/25/2021 HISTORY: Short of breath TECHNIQUE: FINDINGS: Heart and mediastinum are normal. Lungs are clear. Diaphragm is normal. There are chest darrell ds. Bony thorax is intact. IMPRESSION: Normal chest. No change.
[2021-08-10] MEDS ORDERED: ASPIRIN 81 MG PO STA (21:40)
[2021-08-10 21:54] LABS: Appearance,Urine Clear (Clear); Bilirubin,Urine Negative (Negative); Blood,Urine Negative (Negative); Color,Urine Colorless; Glucose,Urine (UA) Negative (Negative); Ketones,Urine Negative (Negative); Leukocyte Esterase,Urine Negative (Negative); Nitrite,Urine Negative (Negative); Protein,Urine Negative (Negative); Specific Gravity,Urine 1.004 (1.001-1.035); Urobilinogen,Urine <2.0 mg/dL (<2.0)
[2021-08-11] MEDS: HEPARIN SODIUM,PORCINE/PF 5,000 UNIT/0.5 ML SYRINGE SQ SCH ×2 (02:39→07:38)
[2021-08-11] MEDS: SODIUM CHLORIDE 0.9% 1,000 ML IV SCH ×2 (02:54→07:40)
[2021-08-11 03:42] LABS: Basophils # (A) 0.1 k/uL (0-0.2); Basophils % (A) 1 %; Eosinophils # (A) 0.1 k/uL (0-0.7); Eosinophils % (A) 1 %; HCT 39.4 % (34.0-46.0); HGB 13.2 gm/dL (11.4-16.0); Lymphocytes # (A) 1.8 k/uL (1.0-4.8); Lymphocytes % (A) 26 %; MCH 30.7 pg (25.0-35.0); MCHC 33.5 g/dL (31.0-37.0); MCV 91.7 fL (80.0-100.0); Mean Platelet Volume 7.9; Monocytes # (A) 0.4 k/uL (0-1.0); Monocytes % (A) 6 %; Neutrophils # (A) 4.2 k/uL (1.3-7.7); Neutrophils % (A) 62 %; Platelet Count 225 k/uL (150-450); RDW 11.7 % (11.5-15.5); WBC 6.8 k/uL (3.8-10.6)
[2021-08-11 03:54] LABS: ALT 14 U/L (4-34); AST 21 U/L (14-36); African American GFR (CKD) >90 (>60 ml/min/1.73 sqM); Albumin 4.3 g/dL (3.5-5.0); Alkaline Phosphatase 57 U/L (38-126); Anion Gap 5 mmol/L; Blood Urea Nitrogen 18 mg/dL (7-17); Calcium 9.6 mg/dL (8.4-10.2); Carbon Dioxide 31 mmol/L (22-30); Chloride 105 mmol/L (98-107); Glucose 105 mg/dL (74-99); Non-African American GFR(CKD) >90 (>60 ml/min/1.73 sqM); Potassium 3.8 mmol/L (3.5-5.1); Sodium 141 mmol/L (137-145); Total Bilirubin 0.7 mg/dL (0.2-1.3); Total Protein 6.5 g/dL (6.3-8.2)
--- NOTE | 2021-08-11 04:03 | P.HPIM ---
History of Present Illness H&P Date: 08/10/21 Chief Complaint: palpitations 60 year old female recently diagnosed with hypertension patient comes in today for new onset attacks of palpitations and chest tightness usually precipitated by activity , but can happen at rest, usually short lived which she came in for evaluation earlier during the month and had full neuro workup and found to have hypertension and started on meds. and released. however this time, she felt its preventing her from continuing what she is done as she feels dyspnea and dizziness. this time symptoms presisted which triggered her to come in for evaluation . she denies any chest pain , but would feel pounding palpitations, and dizziness along with chest tightness and dyspnea. denies any associated sweating, or syncope, denies any nausea or vomiting. she denies any recent travel or history of blood clots, but was hospitalized earlier during the month for similar symptoms, she is normally healthy and very active , and not until earlier during the month she was diagnosed with hypertension and started on meds. she otherwise denies any fever, chills, cough, abd pain , or GI symptoms , denies any urinary changes, denies any focal neuro deficits. initial workup in the ED showed hypokalemia otherwise unremarkable currently her symptoms has completely resolved Review of Systems Pertinent positives as noted in HPI. All other systems were reviewed and are negative Past Medical History Past Medical History: Hypertension History of Any Multi-Drug Resistant Organisms: None Reported Past Surgical History: No Surgical Hx Reported Additional Past Surgical History / Comment(s): [place] teeth extractions, PRK bilateral eyes for vision correction. Past Anesthesia/Blood Transfusion Reactions: No Reported Reaction Past Psychological History: No Psychological Hx Reported Additional Psychological History / Comment(s): Pt resides with her spouse. She is independent. Smoking Status: Never smoker Past Alcohol Use History: Daily Additional Past Alcohol Use History / Comment(s): Pt started smoking in 1974 and quit in 1979. She drinks 3-4 days a week, a couple of drinks each time. Past Drug Use History: None Reported - Past Family History Mother Family Medical History: COPD, Diabetes Mellitus, Hypertension Father Family Medical History: CVA/TIA, Dementia Brother(s) Additional Family Medical History / Comment(s): brain bleed. Medications and Allergies Home Medications Medication Instructions Recorded Confirmed Type amLODIPine [Norvasc] 5 mg PO DAILY 08/10/21 08/10/21 History hydroCHLOROthiazide 25 mg PO DAILY 08/10/21 08/10/21 History Allergies Allergy/AdvReac Type Severity Reaction Status Date / Time No Known Allergies Allergy Verified 08/10/21 22:11 Physical Exam Vitals: Vital Signs Temp Pulse Pulse Pulse Pulse Pulse Resp 08/11/21 02:57 98.1 F 71 15 08/11/21 02:56 65 65 64 66 18 08/11/21 00:00 65 64 66 08/10/21 22:37 77 18 08/10/21 22:32 97.7 F 65 18 08/10/21 20:49 76 18 08/10/21 19:03 97.8 F 85 19 BP BP BP BP BP Pulse Ox 08/11/21 02:57 129/74 99 08/11/21 02:56 08/11/21 00:00 168/76 159/80 165/73 08/10/21 22:37 145/77 98 08/10/21 22:32 150/65 100 08/10/21 20:49 146/50 97 08/10/21 19:03 154/66 100 Intake and Output 08/10/21 08/10/21 08/11/21 14:59 22:59 06:59 Other: Weight 68.039 kg Constitutional: No acute distress, conversant, pleasant Eyes: Anicteric sclerae, moist conjunctiva, Pupils equal round reactive to light ENMT: NC/AT Oropharynx clear, no erythema, or exudates Neck: Supple, FROM, no masses, or JVD No carotid bruits No thyromegaly Lungs: Clear to auscultation Clear to percussion Normal respiratory effort, no accessory muscle use Cardiovascular: Heart regular in rate and rhythm, No murmurs, gallops, or rubs No peripheral edema Abdominal: Soft Nontender, no guarding, rebound or rigidity Abdomen moving with respiration Skin: Normal temperature, tone, texture, turgor Extremities: No digital cyanosis No clubbing Pedal pulses intact and symmetrical Radial pulses intact and symmetrical No calf tenderness Psychiatric: Alert and oriented to person, place and time Appropriate affect fair judgement Neuro Muscles Strength 5/5 in all 4 extremities Sensation to light touch grossly present throughout Cranial nerves II-XII grossly intact No focal sensory deficits Lymphatics: no palpable cervical or supraclavicular , or inguinal lymph nodes Results CBC & Chem 7: 08/11/21 03:14 08/10/21 20:13 Labs: Abnormal Lab Results - Last 24 Hours (Table) 08/10/21 Range/Units 20:13 Potassium 3.2 L (3.5-5.1) mmol/L BUN 25 H (7-17) mg/dL Glucose 119 H (74-99) mg/dL Thrombosis Risk Factor Assmnt - Choose All That Apply Any of the Below Risk Factors Present?: Yes Each Factor Represents 1 point: Obesity (BMI >25) Other Risk Factors: No Other congenital or acquired thrombophilia - If yes, enter type in comment: No Thrombosis Risk Factor Assessment Total Risk Factor Score: 1 Thrombosis Risk Factor Assessment Level: Low Risk Assessment and Plan Assessment: palpitations hypokalemia hypertension plan trend trops radiation monitor cardiology eval IVF hydration with normal saline check orthostatic BP resume BP meds norvasc and HCTZ replace K , follow up levels monitor vital signs check echo heparin sc tid DVT PPX full code anticipated length of stay < 2 midnights
[2021-08-11 08:42] VITALS: BP 144/80; PULSE 75; RESP 18; TEMP 97.8
[2021-08-11] MEDS ORDERED: amLODIPine 5 MG TAB PO SCH (09:00)
[2021-08-11] MEDS ORDERED: hydroCHLOROthiazide 25 MG TAB PO SCH (09:00)
[2021-08-11] MEDS ORDERED: ASPIRIN 325 MG TAB PO SCH (09:00)
--- NOTE | 2021-08-11 09:22 | P.CRDCN ---
History of Present Illness History of present illness: 60-year-old lady with history of hypertension comes to hospital with chest pain. She has symptoms of chest discomfort palpitations and dizziness. This came on suddenly yesterday she was concerned came to hospital and got admitted. She was in the hospital not too long ago with symptoms of dizziness and underwent neurological workup that was negative. There is no history of coronary artery disease or congestive heart failure. There is no prior history of cardiac arrhythmia. Since being admitted patient is pain free and does not have any other symptoms She remains in normal sinus rhythm and EKG did not reveal ischemic changes Cardiac enzymes have been negative. She is stable for discharge and will need an outpatient stress test echo and 24-hour Holter which I'm going to schedule on Thursday Constitutional: Denies chills. Denies fever. Eyes: Denies blurred vision. Denies pain. Ears, nose, mouth and throat: Denies headache. Denies sore throat. Cardiovascular: Significant for palpitations dizziness and atypical chest pain Respiratory: Denies cough. Gastrointestinal: Denies abdominal pain. Denies diarrhea. Denies nausea. Denies vomiting. Musculoskeletal: Denies myalgias. Integumentary: Denies pruritus. Denies rash. Neurological: Denies numbness. Denies weakness. Psychiatric: Denies anxiety. Denies depression. Endocrine: Denies fatigue. Denies weight change. Genitourinary: Denies burning, hematuria, frequency of urination. Hematological: No anemia or excess bleeding. General: The patient is awake and alert, in no distress, and does not appear acutely ill. Skin: Skin is warm and dry and no rashes or lesions are noted. Eye: Pupils are equal, round and reactive to light, extra-ocular movements are intact; there is normal conjunctiva bilaterally. Ears, nose, mouth and throat: There are moist mucous membranes and no oral lesions. Neck: The neck is supple, there is no tenderness or JVD. Cardiovascular: There is a regular rate and rhythm. No murmur, rub or gallop is appreciated. Respiratory: Lungs are clear to auscultation, respirations are non-labored, breath sounds are equal. Gastrointestinal: Soft, non-distended, non-tender abdomen without masses or organomegaly noted. There is no rebound or guarding present. Bowel sounds are unremarkable. Back: There is no tenderness to palpation in the midline. There is no obvious deformity. Musculoskeletal: Normal ROM, no tenderness, There is no pedal edema. There is no calf tenderness or swelling. Extremities: No edema. Vascular: Femoral pulse is normal. Posterior tibial pulses are normal .Dorsalis pedis is palpable. Neurological: CN II-XII intact. There are no obvious motor or sensory deficits. Speech is normal. Psychiatric: Cooperative, appropriate mood & affect, normal judgment. Assessment and plan: Atypical chest pain Dizziness Palpitations Patient's blood pressure is well-controlled. I'm going to stop the hydrochlorothiazide and increase the dose of amlodipine. Potassium was low and has been supplemented. Her symptoms could be related to the hypokalemia. She needs an outpatient stress test echo and Holter which I'm going to set up Past Medical History Past Medical History: Hypertension History of Any Multi-Drug Resistant Organisms: None Reported Past Surgical History: No Surgical Hx Reported Additional Past Surgical History / Comment(s): [place] teeth extractions, PRK bilateral eyes for vision correction. Past Anesthesia/Blood Transfusion Reactions: No Reported Reaction Past Psychological History: No Psychological Hx Reported Additional Psychological History / Comment(s): Pt resides with her spouse. She is independent. Smoking Status: Never smoker Past Alcohol Use History: Daily Additional Past Alcohol Use History / Comment(s): Pt started smoking in 1974 and quit in 1979. She drinks 3-4 days a week, a couple of drinks each time. Past Drug Use History: None Reported - Past Family History Mother Family Medical History: COPD, Diabetes Mellitus, Hypertension Father Family Medical History: CVA/TIA, Dementia Brother(s) Additional Family Medical History / Comment(s): brain bleed. Medications and Allergies Home Medications Medication Instructions Recorded Confirmed Type amLODIPine [Norvasc] 5 mg PO DAILY 08/10/21 08/10/21 History hydroCHLOROthiazide 25 mg PO DAILY 08/10/21 08/10/21 History Allergies Allergy/AdvReac Type Severity Reaction Status Date / Time No Known Allergies Allergy Verified 08/10/21 22:11 Physical Exam Vitals: Vital Signs Temp Pulse Pulse Pulse Pulse Pulse Resp 08/11/21 08:00 75 18 08/11/21 07:00 97.8 F 75 18 08/11/21 02:57 98.1 F 71 15 08/11/21 02:56 65 65 64 66 18 08/11/21 00:00 65 64 66 08/10/21 22:37 77 18 08/10/21 22:32 97.7 F 65 18 08/10/21 20:49 76 18 08/10/21 19:03 97.8 F 85 19 BP BP BP BP BP Pulse Ox 08/11/21 08:00 08/11/21 07:00 144/80 100 08/11/21 02:57 129/74 99 08/11/21 02:56 08/11/21 00:00 168/76 159/80 165/73 08/10/21 22:37 145/77 98 08/10/21 22:32 150/65 100 08/10/21 20:49 146/50 97 08/10/21 19:03 154/66 100 Intake and Output 08/10/21 08/11/21 08/11/21 22:59 06:59 14:59 Intake Total 118 Balance 118 Intake: Oral 118 Other: Voiding Method Toilet # Voids 2 Weight 68.039 kg Results 08/11/21 03:14 08/11/21 03:14 Cardiac Enzymes 08/10/21 08/10/21 08/11/21 Range/Units 20:13 20:13 00:40 AST 22 (14-36) U/L Troponin I <0.012 <0.012 (0.000-0.034) ng/mL 08/11/21 08/11/21 Range/Units 03:14 03:14 AST 21 (14-36) U/L Troponin I <0.012 (0.000-0.034) ng/mL Coagulation 08/10/21 Range/Units 20:13 PT 10.5 (9.0-12.0) sec APTT 23.7 (22.0-30.0) sec CBC 08/10/21 08/11/21 Range/Units 20:13 03:14 WBC 8.5 6.8 (3.8-10.6) k/uL RBC 4.34 4.30 (3.80-5.40) m/uL Hgb 13.4 13.2 (11.4-16.0) gm/dL Hct 39.4 39.4 (34.0-46.0) % Plt Count 252 225 (150-450) k/uL Comprehensive Metabolic Panel 08/10/21 08/11/21 Range/Units 20:13 03:14 Sodium 139 141 (137-145) mmol/L Potassium 3.2 L 3.8 (3.5-5.1) mmol/L Chloride 100 105 (98-107) mmol/L Carbon Dioxide 29 31 H (22-30) mmol/L BUN 25 H 18 H (7-17) mg/dL Creatinine 0.80 0.69 (0.52-1.04) mg/dL Glucose 119 H 105 H (74-99) mg/dL Calcium 10.1 9.6 (8.4-10.2) mg/dL AST 22 21 (14-36) U/L ALT 16 14 (4-34) U/L Alkaline Phosphatase 71 57 (38-126) U/L Total Protein 7.0 6.5 (6.3-8.2) g/dL Albumin 4.8 4.3 (3.5-5.0) g/dL Current Medications Generic Name Dose Route Start Last Admin Trade Name Jacobq PRN Reason Stop Dose Admin Amlodipine Besylate 5 mg 08/11/21 09:00 08/11/21 07:39 Amlodipine 5 Mg Tab PO 5 mg DAILY ARPITA Administration Aspirin 325 mg 08/11/21 09:00 08/11/21 07:39 Aspirin 325 Mg Tab PO 325 mg DAILY ARPITA Administration Heparin Sodium (Porcine) 5,000 unit 08/11/21 00:00 08/11/21 07:38 Heparin Sodium,Porcine/Pf 5,000 Unit/0.5 Ml Syringe SQ Not Given Q8HR ARPITA Sodium Chloride 1,000 mls @ 100 mls/hr 08/10/21 23:30 08/11/21 07:40 Saline 0.9% IV 100 mls/hr .Q10H ARPITA Administration Intake and Output 08/10/21 08/11/21 08/11/21 22:59 06:59 14:59 Intake Total 118 Balance 118 Intake: Oral 118 Other: Voiding Method Toilet # Voids 2 Weight 68.039 kg 08/11/21 03:14 08/11/21 03:14
--- NOTE | 2021-08-11 18:05 | P.DS ---
Providers Date of admission: 08/10/21 21:58 Expected date of discharge: 08/11/21 Attending physician: Yolette Mary MD Consults: 08/10/21 21:59 Consult Physician Urgent Consulting Provider: Bigg Daugherty Consult Reason/Comments: Chest tightness, palpitations, lightheadedness Do you want consulting provider notified?: Yes Primary care physician: Tess Christie DO Hospital Course: Discharge Diagnosis: Palpitations with associated dizziness and atypical chest pain Hypertension Hospital Course: Patient is a 60-year-old female with a past medical history of hypertension who presented to the ER with complaints of palpitation and dizziness. In the ER this time she had another attack of palpitations and chest tightness. She had had one earlier this month and came in an MRI performed which showed nonspecific white matter demyelination. On arrival to the ER her blood pressure was slightly elevated at 154/66. She had negative orthostatics. Initial laboratory analysis showed mild hypokalemia at 3.2. EKG was nonischemic. She was admitted for further monitoring. Her troponins remained negative. TSH was unremarkable. Her overnight telemetry had no signs of significant arrhythmias. She was determined stable for discharge home for outpatient evaluation. Follow-up: She'll see Dr. Richard next week in the office for an outpatient and then monitor, echocardiogram and, and probable stress test. She'll follow up with her primary care physician as well. Recommended her coming off of hydrochlorothiazide until the cause of her dizziness is determined. Patient seen and examined at bedside. Denies any current chest pain, no recurrent episodes of palpitations overnight. Had a long discussion regarding blood pressure medications, and when to seek care for blood pressure elevated off of hydrochlorothiazide. She is in agreement with the plan for outpatient follow-up. Vital signs reviewed and stable. General: non toxic, no distress, appears at stated age Derm: warm, dry Head: atraumatic, normocephalic, symmetric Eyes: EOMI, no lid lag, anicteric sclera Mouth: no lip lesion, mucus membranes moist Cardiovascular: S1S2 reg, no murmur, positive posterior tibial pulse bilateral, Lungs: CTA bilateral, no rhonchi, no rales , no accessory muscle use Abdominal: soft, nontender to palpation, no guarding, no appreciable organomegaly Ext: no gross muscle atrophy, no edema, no contractures Neuro: CN II-XI grossly intact, no focal neuro deficits Psych: Alert, oriented, appropriate affect A total of 25 minutes of time were spent preparing this complex discharge summary . Patient Condition at Discharge: Stable Plan - Discharge Summary Discharge Rx Participant: No New Discharge Prescriptions: Continue amLODIPine [Norvasc] 5 mg PO DAILY Discontinued hydroCHLOROthiazide 25 mg PO DAILY Discharge Medication List amLODIPine [Norvasc] 5 mg PO DAILY 08/10/21 [History] Follow up Appointment(s)/Referral(s): Tess Christie DO [Primary Care Provider] - 1-2 days Jose M Flores MD [STAFF PHYSICIAN] - 1 Week (office will call you to set up appointment for stress test, echo, and event monitor. ) Activity/Diet/Wound Care/Special Instructions: Activity: as tolerated Diet: Heart healthy Special Instructions: Call [facility] in the morning for further recommendations. Check blood pressure once daily if it is >180 on 2 separate occasions [address] Flores Discharge Disposition: HOME SELF-CARE
== END 2021-08-11 11:46 | disposition home or self-care (01) ==
LOC: EC 19:01 → 6NMEDSUR 21:58
PROVIDERS: ADMIT Internal Medicine; ATTEND Internal Medicine
DX: R07.89 Other chest pain (principal); E87.6 Hypokalemia; R00.2 Palpitations; R42 Dizziness and giddiness; I10 Essential (primary) hypertension; R06.00 Dyspnea, unspecified; F41.9 Anxiety disorder, unspecified; Z20.822 Contact with and (suspected) exposure to COVID-19; E66.9 Obesity, unspecified; Z68.25 Body mass index [BMI] 25.0-25.9, adult; Z79.899 Other long term (current) drug therapy; Z87.891 Personal history of nicotine dependence; Z98.890 Other specified postprocedural states; Z83.3 Family history of diabetes mellitus; Z82.49 Family history of ischemic heart disease and other diseases of the circulatory system; Z82.5 Family history of asthma and other chronic lower respiratory diseases; Z82.3 Family history of stroke; Z82.0 Family history of epilepsy and other diseases of the nervous system
CPT/HCPCS: 99285; 36415; 85379; 83880; 80053 ×2; 83605; 83735; 84443; 84484 ×2; 85025 ×2; 85610; 85730; 81003; 87635; 71046; G0378 ×2; 93005